=== PATIENT | female | born 1930 | race Caucasian/White ===

== ENCOUNTER 2019-02-23 06:02 | Inpatient (IN) ==
--- NOTE | 2019-02-10 16:37 | PAT Medication Instructions ---
Medication Instructions Date of Service February 10, 2019 Home Medications cyanocobalamin (vitamin B-12) [Vitamin B-12] 1,000 mcg PO QAM hydrochlorothiazide 12.5 mg PO QAM losartan 50 mg PO QAM multivitamin 1 cap PO QAM DO NOT take the morning of surgery cyanocobalamin (vitamin B-12) [Vitamin B-12] 1,000 mcg PO QAM hydrochlorothiazide 12.5 mg PO QAM losartan 50 mg PO QAM multivitamin 1 cap PO QAM Other Notes If you have any questions please call us at [phone] or [phone] or [phone] or [phone]
--- NOTE | 2019-02-11 10:15 | Anesthesiology Consultation ---
Date of Service February 11, 2019 Assessment & Plan (1) Encounter for pre-operative examination: PCP: 02/09/19: "As long as pre-op EKG, labs acceptable, feel she is acceptable risk for procedure." Chart Review Chart Review: Pending: Refer to Additional Notes / Consult section (pending preop testing (labs, EKG, CXR)) and Patient seen in Pre Admission Testing Teaching & Discussion Pre-Anesthesia Teaching/Discussion Notes: Instructed NPO after midnight before surgery,except medications with 15 cc of water. Medication instructions provided according to the PAT guidelines. History Surgery Operation Date: 02/23/19 08:55 Proposed Procedures p Total Knee Arthroplasty - Cullen Power MD Height/Weight Height: 5 ft 7 in Weight: 77.3 kg Allergies Allergy/AdvReac Type Severity Reaction Status Date / Time Penicillins Allergy Unknown Rash Verified 02/04/19 08:00 Sulfa (Sulfonamide Allergy Unknown Rash Verified 02/04/19 08:00 Antibiotics) Medications Home Medications Medication Instructions Recorded Confirmed Last Taken cyanocobalamin (vitamin B-12) 1,000 mcg PO QAM 02/04/19 02/04/19 Unknown [Vitamin B-12] hydrochlorothiazide 12.5 mg PO QAM 02/04/19 02/04/19 Unknown losartan 50 mg PO QAM 02/04/19 02/04/19 Unknown multivitamin 1 cap PO QAM 02/04/19 02/04/19 Unknown Past Medical History Medical History DDD (degenerative disc disease) Hypertension Osteoarthritis Exercise / Class Metabolic Activity III < 4 Walking/Shop/Light housework (no chest pain/sob with swimming/gardening; ambulation activities limited in setting of increasing knee pain) Past Family History Family History Father Family history of bladder cancer Family history of liver cancer Brother Family history of bladder cancer Past Surgical History Surgical History History of appendectomy History of cataract surgery RIGHT/LEFT History of colonoscopy History of eye surgery RIGHT/LEFT EYELIDS "TIGHTENED" History of gynecologic surgery VAGINAL SLING Past Anesthesia History No Hx of Anesthesia Complications and No Family Hx of Anesthesia Complications History of PONV No Hx of PONV and No Hx of Motion Sickness Social History Smoking Status: Never smoker Do You Dip or Chew Tobacco: No Hx Alcohol Use: Yes Alcohol type: wine alcohol intake frequency: 0-2 drinks per day (1 glass wine/dinner + occasional additional drink HS) Hx Substance Use: No substance use type: does not use Review of Systems Patient denies chest pain, shortness of breath, reflux, cough, wheezing, palpitations. Physical Exam Vital Signs VITALS BP 131/78 P 76 TEMP 97.5 SP02 93%RA RESP 18 PHYSICAL Full neck and c-spine range of motion. Full TMJ range of motion. TMD 3 finger breaths Mallampati Score 1 Dentition: intact, upper front/molars crowns Lungs: clear throughout to auscultation Cardiac: regular rate and rhythm, no murmurs noted Spine: normal Carotid arteries: negative bruit Extremities: no edema
--- NOTE | 2019-02-11 11:12 | XRay Report ---
XR chest Pre-admission PA/Lat CLINICAL HISTORY: Preoperative chest COMPARISON STUDY: No previous studies for comparison. FINDINGS: The cardiac and mediastinal contours are normal. There is no evidence of focal pulmonary co nsolidation. There is no evidence of failure. No pleural effusions are visualized.[There is prominenc e the paraspinal soft tissues at the thoracoabdominal junction, likely secondary to a hiatal hernia. Degenerative changes are present within the spine. IMPRESSION: No active disease in the chest. Electronically signed by: Esteban Valerio M.D. 02/11/2019 11:10 AM
[2019-02-11 12:32] LABS: Basophils # (auto) 0.11 K/uL (0-0.2); Basophils % (auto) 1.6 %; Eosinophils # (auto) 0.21 K/uL (0-0.5); Eosinophils % (auto) 3.1 %; Hemoglobin 14.7 g/dL (12.0-16.0); Immature Granulocytes # (auto) 0.02 K/uL (0.00-0.02); Immature Granulocytes % (auto) 0.3 %; Lymphocytes # (auto) 1.95 K/uL (1.2-3.4); Lymphocytes % (auto) 28.6 %; Mean Corpuscular Hemoglobin 31.1 pg (25-34); Mean Corpuscular Hgb Conc 32.7 g/dL (32-36); Mean Corpuscular Volume 95.3 fL (80-100); Mean Platelet Volume 10.3 fL (7.4-10.4); Monocytes # (auto) 1.05 K/uL (0.11-0.59); Monocytes % (auto) 15.4 %; Neutrophils # (auto) 3.48 K/uL (1.4-6.5); Platelet Count 258 K/uL (130-400); RDW Coefficient of Variation 13.6 % (11.5-14.5); RDW Standard Deviation 47.6 fL (36.4-46.3); Red Blood Count 4.72 M/uL (4.2-5.4); White Blood Count 6.82 K/uL (4.8-10.8)
[2019-02-11 12:48] LABS: BUN Creatinine Ratio 30.3 (10-20); Calcium 9.4 mg/dl (8.5-10.1); Creatinine Clr Calc Pharmacy 90.4 ml/min; Est GFR (African American) 102.9; Est GFR (Non-African American) 88.8; Potassium 3.9 mmol/L (3.5-5.1)
[2019-02-11 12:51] LABS: Appearance Urine Clear (Clear); Bacteria Urine Automated Negative (Negative); Bilirubin Urine Negative (Negative); Blood Urine Negative (Negative); Color Urine Yellow; Epithelial Cell Urine Auto >30 /lpf (0-5); Glucose Urine UA Negative (Negative); Ketones Urine Negative (Negative); Leukocyte Esterase Urine Trace (Negative); Nitrite Urine Negative (Negative); Protein Urine Negative (Negative); RBC Urine Automated 0-4 /hpf (0-4); Specific Gravity Urine 1.015 (1.000-1.030); Urobilinogen Urine Negative (Negative)
[2019-02-11 12:52] LABS: Partial Thromboplastin Time 26.5 Seconds (21.0-31.0); Prothrombin Time 10.1 Seconds (9.0-12.0)
--- NOTE | 2019-02-15 15:58 | History and Physical Report ---
DATE OF ADMISSION: 02/23/2019 CHIEF COMPLAINT: Right knee pain. HISTORY OF PRESENT ILLNESS: This 88-year-old white female presents to the office with complaints of right knee pain for the last 2-3 years. It has become worse over the last 6 months. She has tried activity modification as well as OTC medications without improvement. She has also tried injections for both cortisone and viscosupplementation without lasting relief. She elects to proceed with right total knee arthroplasty in hopes of alleviating her pain. Pain is worse with weightbearing. It is affecting her ADLs. She denies any numbness or tingling. No effusions. She does get night pain. X-ray and MRI imaging have previously been obtained. PAST MEDICAL HISTORY: Significant for hypertension, peripheral neuropathy, osteoarthritis, low back pain, and obesity. PREVIOUS SURGERIES: Cataract surgery and eyelid surgery, appendectomy. ALLERGIES: KNOWN ALLERGY TO PENICILLIN THAT CAUSED RASH 40 years ago. ALSO, ALLERGIC TO SULFA DRUGS. SENSITIVE TO SHELLFISH, WHICH CAUSE GI symptoms. CURRENT MEDICATIONS: Multivitamin daily, Tylenol p.r.n., ibuprofen p.r.n., Voltaren gel q.i.d., losartan daily, unknown dose. SOCIAL HISTORY: The patient is . No tobacco use and daily ETOH use. Retired. FAMILY HISTORY: Noncontributory. Parents are . REVIEW OF SYSTEMS: A total of 10 systems are reviewed and are significant only for above stated conditions. PHYSICAL EXAMINATION: GENERAL: Well-developed, well-nourished elderly white female in no acute distress. Sitting in a chair. Alert and oriented. VITAL SIGNS: Weight 77.4 kg, height 166 cm, BP 136/70, pulse 106, temperature 36.8, O2 sat 96% on room air. SKIN: Warm and dry with fair turgor. No rashes or lesions. No ecchymosis or erythema. HEENT: Normocephalic, atraumatic. Eyes PERRLA, EOMI. Nares patent bilaterally without turbinate enlargement. Oropharynx without erythema or exudate. No lesions noted. Uvula midline. Oral mucosa moist. Fair dentition. Multiple fillings and caps are noted. HEART: RRR. No MGR. LUNGS: Clear to auscultation bilaterally. No crackles, rhonchi or wheezing. Good air movement. ABDOMEN: Mildly obese. Bowel sounds present x4, soft, nontender. No organomegaly. No masses. MUSCULOSKELETAL: Right knee evaluation reveals no significant intraarticular effusion. Obvious arthritic changes. Valgus stance. Full terminal extension. Flexion to just greater than 90 degrees. Strength is 5/5 with fair quad tone. Stable collateral ligaments. No laxity. No defect in the patellar tendon or quadriceps tendon. Ambulatory with an antalgic gait. NEUROLOGIC: Cranial nerves II through XII were intact. Gross sensation is intact across the right leg by soft touch. Peripheral pulses are 2+. DATA: Radiographic imaging previously obtained shows end-stage DJD of the right knee. MRI imaging previously obtained also shows end-stage DJD of the right knee. IMPRESSION: Right knee end-stage degenerative joint disease. PLAN: Postoperative prescriptions for Percocet and Coumadin will be provided at discharge from the hospital. Anticipate discharge to home with home health services. She already has access to a cane. Prescription for a rolling walker was provided. Preoperative lab work, EKG, and chest x-ray have been ordered. She has already seen her PCP, Dr. Richter for medical clearance.
[~2019-02-23 06:02] MED LIST: CEFAZOLIN 2000MG 2,000 MG/15 ML SYR IV SCH; LR 500ML BOLUS, THEN 15ML/HR IV SCH; LR 60ML/HR IV SCH; ROPIVACAINE 0.5% HCL/PF 150 MG, BUPIVACAINE 0.5% MPF 30 ML, EPINEPHrine 0.15 MG, Ketoro... INFIL SCH; TRANEXAMIC ACID 1,000 MG **IV Pre-op IV SCH
--- NOTE | 2019-02-23 06:29 | History & Physical Bridge Note ---
Date of Service February 23, 2019 History & Physical Bridge Note I have examined the patient, reviewed the History & Physical and in the interval since the performance of the History & Physical I have noted the following changes of clinical significance: consent obtained.no changes noted
[2019-02-23] MEDS ORDERED: BUPIVACAINE 0.5 % 5 MG/1 ML PF 10ML VIAL ONE (06:31)
[2019-02-23] MEDS ORDERED: ROPIVACAINE 0.5% 5 MG/ML 30 ML VIAL ONE (06:32)
[2019-02-23] MEDS ORDERED: EPINEPHrine INJ 1 MG/ML AMP ONE (06:32)
[2019-02-23] MEDS ORDERED: fentaNYL citrate 100 MCG/2 ML VIAL IV PRN (07:28)
[2019-02-23] MEDS ORDERED: HYDROmorphone INJ 1 MG/ML SYRINGE IV PRN (07:28)
[2019-02-23] MEDS ORDERED: ONDANSETRON INJ 2 MG/ML 2 ML VIAL IV PRN ×2 (07:28→12:06)
[2019-02-23] MEDS ORDERED: ePHEDrine sulfate 50 MG/ML AMP IV PRN (07:28)
[2019-02-23] MEDS ORDERED: ATROPINE SULFATE 0.1 MG/ML 10ML SYR IV PRN (07:28)
[2019-02-23] MEDS ORDERED: MIDAZOLAM HCL 1 MG/ML 2ML VIAL ONE (08:11)
[2019-02-23] MEDS ORDERED: fentaNYL citrate 100 MCG/2 ML VIAL ONE (08:11)
[2019-02-23] MEDS ORDERED: ORTHO JOINT ANESTHETIC ONE (09:14)
[2019-02-23] MEDS ORDERED: LIDOCAINE HCL 2% 2 ML VIAL/AMP(20MG/ML) INFIL ONE (10:27)
[2019-02-23] MEDS ORDERED: PHENYLEPHRINE 100MCG/ML 5ML SYR ONE (10:27)
[2019-02-23] MEDS ORDERED: PROPOFOL IV EMULSION 10 MG/ML 20 ML VIAL IV ONE (10:27)
--- NOTE | 2019-02-23 10:48 | Post Operative Brief Note ---
Immediate Post Op Note v1 Date of Surgery February 23, 2019 Pre & Post Diagnosis Operation Date: 02/23/19 08:50 Pre-Op Diagnosis: Right Knee End-Stage Degenerative Joint Disease Post-Op Diagnosis: Right Knee End-Stage Degenerative Joint Disease Procedure Operation Date: 02/23/19 08:50 Actual Procedures p Right Total Knee Arthroplasty(Right) - Cullen Power MD Surgeon Cullen Power MD Video Specialist gianna/john Estimated Blood Loss 25 Findings Consistent with Post-Op Diagnosis
--- NOTE | 2019-02-23 10:53 | Operative Report ---
Post Operative Report Pre & Post Diagnosis Operation Date: 02/23/19 08:50 Pre-Op Diagnosis: Right Knee End-Stage Degenerative Joint Disease Post-Op Diagnosis: Right Knee End-Stage Degenerative Joint Disease Procedure Operation Date: 02/23/19 08:50 Actual Procedures Right Total Knee Arthroplasty(Right) - Cullen Power MD Surgeon BLUE Power MD Transportation Planner gianna/john Estimated Blood Loss 25 Findings Consistent with Post-Op Diagnosis Specimens see operative report Drains none Complications none Disposition Accompanied Patient To Recovery: Yes Disposition: Recovery Room Indications This 88-year-old white female presented to the office with complaints of intractable right knee pain. She had tried conservative care measures without improvement. She elected to proceed with surgical intervention after being educated about potential risks and outcomes. Preoperative imaging was obtained. Description of Procedure Patient was administered a spinal anesthetic and then taken to the operating room where she was given sedation. She was prepped and draped in the usual sterile fashion. Please see Dr. Power's operative report for specifics of the procedure. I was present for the entire case from initial patient positioning through final wound closure. Assistance was provided in tissue retraction, hemostasis, trial implant placement, final implant placement, and final wound closure. Patient was taken to the recovery room in satisfactory condition. I attest to the content of the Intraoperative Record and any orders documented therein. Any exceptions are noted below.
--- NOTE | 2019-02-23 10:55 | Operative Report ---
Post Operative Report Pre & Post Diagnosis Operation Date: 02/23/19 08:50 Pre-Op Diagnosis: Right Knee End-Stage Degenerative Joint Disease Post-Op Diagnosis: Right Knee End-Stage Degenerative Joint Disease Procedure Operation Date: 02/23/19 08:50 Actual Procedures p Right Total Knee Arthroplasty(Right) - Cullen Power MD Surgeon Cullen Power MD Public Relations Intern gianna/john Estimated Blood Loss 25 Findings Consistent with Post-Op Diagnosis Specimens As per the procedure notes Complications none Disposition Accompanied Patient To Recovery: Yes Disposition: Recovery Room Indications 88 years woman with right knee degenerative arthritis Description of Procedure Supine position, standard prep and drape, tourniquet control, timeout Right knee total knee arthroplasty Please see Dr. Power's procedure notes for specific details I was present throughout the case, assisted for wound closure, and transfer the patient to PACU in stable condition. I attest to the content of the Intraoperative Record and any orders documented therein. Any exceptions are noted below.
--- NOTE | 2019-02-23 11:25 | Operative Report ---
DATE OF OPERATION: 02/23/2019 SURGEON: Cullen Power MD PATROL SUPERVISOR: Dr. Pelaez. SECOND PATROL SUPERVISOR: Dax Bui PA-C PREOPERATIVE DIAGNOSIS: Osteoarthritis, right knee with flexion deformity. POSTOPERATIVE DIAGNOSIS: Osteoarthritis, right knee with flexion deformity. OPERATION PERFORMED: Cemented right total knee replacement. SUMMARY OF IMPLANTS: Size 3 right femur, posterior cruciate substituting, size 3 mobile bearing tray, oval-domed 3-peg patella, size 3 insert, 10 mm thick, posterior cruciate substituting, 2 bags of Palacos G cement. Bone pathology pending on resection. ESTIMATED BLOOD LOSS: 25 mL. CRYSTALLOID: 1600 mL. PERIOPERATIVE SITUATION: Medically cleared female with intractable knee pain, has failed conservative management and is requesting total knee replacement. She understands risks and consequences. DESCRIPTION OF PROCEDURE: The patient was appropriately identified, site verified, consent verified. Antibiotics confirmed as being given. The right lower extremity was prepped and draped in usual routine fashion. Tourniquet inflated to 300 mmHg after exsanguination of limb with a rubber Esmarch bandage for a total of 47 minutes. A midline exposure was utilized. Parapatellar arthrotomy was performed. Synovectomy completed. Patella was everted easily. Distal femur was then entered. Cruciates resected, tibia subluxated, menisci resected. Femur resected, 14 mm; tibia resected, 4 mm, the extension gap was excellent. Femur was sized between a 4 and a 3, was measured 4 cut 3. The flexion gap was excellent. Orthomix was injected posteriorly. A box cut was then made and a size 3 femur fit well. The tibia was then broached and reamed to a size 3 and a 10 mm spacer was very stable in all planes including mid range flexion. The patella tracked well. The patella was sized to a 38 after it was resected leaving 16 mm. Seating holes made and the trial tracked well. Orthomix was injected all around the joint. The trials were then removed. The wound was irrigated with Betadine and Pulsavac and then cemented into position, tibia, femur and patella in that sequence. After 12 minutes, the tourniquet was deflated. Minor bleeding points were controlled with electrocautery. After additional 2 minutes, the knee was flexed, subluxated, the spacer removed. No cement removal required. It was irrigated with Betadine. Permanent liner seated. The knee reduced and closed with #2 Vicryl, 2-0 Vicryl, and stainless steel clips. Appropriate dressing applied. DVT prophylaxis per protocol. I attest to the content of the Intraoperative Record and any orders documented therein. Any exceptions are noted below. MTDD
--- NOTE | 2019-02-23 11:57 | Anesthesiology Progress Note ---
Date of Service February 23, 2019 Anesthesia Post Procedure Vital Signs Vital Signs: Temp Pulse Resp BP Pulse Ox 02/23/19 11:40 36.3 C L 67 16 102/54 L 97 02/23/19 11:30 36.6 C 71 15 104/57 L 99 02/23/19 11:20 36.3 C L 76 17 106/52 L 96 02/23/19 11:10 36.3 C L 76 17 106/52 L 96 02/23/19 11:00 36.3 C L 75 23 93/53 L 94 02/23/19 10:54 36.3 C L 75 18 97/53 L 96 02/23/19 06:57 36.4 C L 75 20 138/75 95 Pain Intensity Right Knee: Pain Intensity: 1 Transfer of Care Handoff Completed per policy Notes Mental Status: alert / awake / arousable and participated in evaluation Patient Amnestic to Procedure: Yes Nausea / Vomiting: adequately controlled Pain: adequately controlled Airway Patency, RR, SpO2: stable & adequate BP & HR: stable & adequate Hydration State: stable & adequate Anesthetic Complications: no major complications apparent and Pt Satisfied with anesthetic care
[2019-02-23] MEDS ORDERED: DiphenhydrAMINE HCL 50 MG/ML VIAL IV PRN (12:06)
[2019-02-23] MEDS ORDERED: METOCLOPRAMIDE HCL INJ 5 MG/ML 2 ML VIAL IV PRN (12:06)
[2019-02-23] MEDS ORDERED: KETOROLAC TROMETHAMINE 15 MG/ML VIAL IV PRN (12:06)
[2019-02-23] MEDS ORDERED: bisacodyL 10 MG SUPP PR PRN (12:06)
[2019-02-23] MEDS ORDERED: SODIUM CHLORIDE 0.9% 1000ML 1,000 ML IV SCH (12:06)
[2019-02-23] MEDS ORDERED: HYDROmorphone INJ 0.5 MG/0.5 ML SYR IV PRN (12:06)
[2019-02-23] MEDS ORDERED: ALUMINUM/MAGNESIUM SUSP 30 ML UDC PO PRN (12:06)
[2019-02-23] MEDS ORDERED: MAGNESIUM HYDROXIDE SUSP 30 ML UDC PO PRN (12:06)
[2019-02-23] MEDS ORDERED: NALOXONE HCL 0.4 MG/1 ML VIAL/CARP IV PRN (12:06)
--- NOTE | 2019-02-23 12:06 | Anesthesiology Progress Note ---
Date of Service February 23, 2019 Anesthesia Post Procedure Vital Signs Vital Signs: Temp Pulse Resp BP Pulse Ox 02/23/19 11:55 68 16 107/53 L 97 02/23/19 11:40 36.3 C L 67 16 102/54 L 97 02/23/19 11:30 36.6 C 71 15 104/57 L 99 02/23/19 11:20 36.3 C L 76 17 106/52 L 96 02/23/19 11:10 36.3 C L 76 17 106/52 L 96 02/23/19 11:00 36.3 C L 75 23 93/53 L 94 02/23/19 10:54 36.3 C L 75 18 97/53 L 96 02/23/19 06:57 36.4 C L 75 20 138/75 95 Pain Intensity Right Knee: Pain Intensity: 1 Transfer of Care Handoff Completed per policy Notes Mental Status: alert / awake / arousable and participated in evaluation Patient Amnestic to Procedure: Yes Nausea / Vomiting: adequately controlled Pain: adequately controlled Airway Patency, RR, SpO2: stable & adequate BP & HR: stable & adequate Hydration State: stable & adequate Neuraxial Anesthesia: was administered and sensory block is resolving Anesthetic Complications: no major complications apparent and Pt Satisfied with anesthetic care
--- NOTE | 2019-02-23 12:16 | XRay Report ---
XR knee RT 2V routine CLINICAL HISTORY: Surgical Post Op COMPARISON: Right knee radiographs February 11, 2019. FINDINGS: Alignment of the total right knee arthroplasty is anatomic. There is no fracture or unexpe cted radiopaque foreign body. There are skin clarita. IMPRESSION: Expected findings following total right knee arthroplasty. Electronically signed by: Sai Acevedo M.D. 02/23/2019 12:15 PM
[2019-02-23] MEDS: ORTHO WARFARIN NOMOGRAM SCH (13:17)
[2019-02-23] MEDS: ACETAMINOPHEN 500 MG TAB PO SCH ×2 (13:23→21:03)
--- NOTE | 2019-02-23 13:33 | Progress Note ---
DATE: 02/23/2019 SUBJECTIVE: Postop check right knee replacement. She is doing well. Neurovascular check is normal. She denies chest pain, shortness of breath, fever, chills, nausea, vomiting or headache. Vital signs are stable. She is afebrile. She is eating lunch. Wound dressing clean, dry and intact. Postop x-rays look excellent. ASSESSMENT: Doing well. Continue care pathway. Potential discharge tomorrow.
--- NOTE | 2019-02-23 13:42 | Discharge Summary ---
DATE OF ADMISSION: 02/23/2019 DATE OF DISCHARGE: 02/24/2019 CHIEF COMPLAINT: Right knee pain. HISTORY OF PRESENT ILLNESS: The patient is a healthy 88-year-old female who underwent elective right total knee replacement. Hospital course has been uneventful. She is eating and drinking. Denies chest pain, shortness of breath, fever, chills, nausea, vomiting, or headache. She has excellent looking postop x-rays. PAST MEDICAL HISTORY: Remarkable for hypertension, peripheral neuropathy, osteoarthritis, low back pain, obesity. PAST SURGICAL HISTORY: Include cataract surgery, eyelid surgery, appendectomy. ALLERGIES: PENICILLIN 40 YEARS AGO CAUSED A RASH, ALLERGIC TO SULFA DRUGS, SENSITIVE TO SHELLFISH, WHICH CAUSES GI SYMPTOMS. PREADMISSION MEDICATIONS: Include multivitamin, Tylenol p.r.n., ibuprofen, Voltaren gel, losartan unknown dose. She will be discharged on pain medication and Coumadin. Keep INR 1.8-2.2. SOCIAL HISTORY: Reveals she is . No tobacco or alcohol use. REVIEW OF SYSTEMS: Noncontributory. FAMILY HISTORY: Noncontributory. ASSESSMENT: Overall doing well status post right total knee replacement. Postop x-rays look excellent. Continue care pathway. Discharge according to regulations. She should be ready for discharge tomorrow.
[2019-02-23] MEDS ORDERED: WARFARIN SOD 5 MG TAB PO ONE (16:00)
[2019-02-23] MEDS: CEFAZOLIN 2000MG 2,000 MG/15 ML SYR IV SCH (16:21)
[2019-02-23] MEDS: FERROUS GLUCONATE 324 MG TAB PO SCH (16:32)
[2019-02-23] MEDS: ASCORBIC ACID 500 MG TAB PO SCH (16:32)
[2019-02-23] MEDS ORDERED: TRANEXAMIC ACID 1,000 MG in 0.9 % SODIUM CHLORIDE 100 ML IV SCH (16:55)
[2019-02-23] MEDS: DOCUSATE SODIUM 100 MG CAP PO SCH (20:20)
[2019-02-23] MEDS ORDERED: SENNA 8.6 MG TAB PO SCH (21:00)
[2019-02-24] MEDS: CEFAZOLIN 2000MG 2,000 MG/15 ML SYR IV SCH
[2019-02-24] MEDS: OXYCODONE HCL IR 5 MG TAB (IMMEDIATE RELEASE) PO PRN ×3 (01:57→13:11)
[2019-02-24] MEDS: ACETAMINOPHEN 500 MG TAB PO SCH ×2 (05:55→13:14)
[2019-02-24 06:27] LABS: Hematocrit (blood only) 35.8 % (37-47); Hemoglobin 11.7 g/dL (12.0-16.0); Mean Corpuscular Hemoglobin 30.7 pg (25-34); Mean Corpuscular Hgb Conc 32.7 g/dL (32-36); Mean Platelet Volume 9.5 fL (7.4-10.4); Platelet Count 217 K/uL (130-400); RDW Coefficient of Variation 13.3 % (11.5-14.5); RDW Standard Deviation 45.9 fL (36.4-46.3); Red Blood Count 3.81 M/uL (4.2-5.4); White Blood Count 12.46 K/uL (4.8-10.8)
[2019-02-24 06:43] LABS: INR 1.1 (0.9-1.1); Prothrombin Time 10.8 Seconds (9.0-12.0)
[2019-02-24 06:57] LABS: Calcium 8.4 mg/dl (8.5-10.1); Creatinine Clr Calc Pharmacy 90.4 ml/min; Est GFR (African American) 102.9; Est GFR (Non-African American) 88.8
--- NOTE | 2019-02-24 07:24 | Progress Note ---
DATE: 02/24/2019 SUBJECTIVE: Check status post right total knee replacement. The patient is without any complaints. She slept poorly based on the fact she was aroused by hospital processing the whole night. Otherwise, she states she was fine. Denies chest pain, shortness of breath, fever, chills, nausea, vomiting or headache. OBJECTIVE: VITAL SIGNS: Stable. She is afebrile. EXTREMITIES: Neurovascular check femoral sciatic nerve is normal. Calves nontender. LABORATORY WORK: Reveals hematocrit is stable at 35.8. INR is pending. ASSESSMENT: Doing well. PLAN: Discharge to home today with services. She will follow up in 2 weeks for staple removal. Coumadin dose per nomogram.
[2019-02-24] MEDS: FERROUS GLUCONATE 324 MG TAB PO SCH (07:51)
[2019-02-24] MEDS: ASCORBIC ACID 500 MG TAB PO SCH (07:51)
[2019-02-24] MEDS: DOCUSATE SODIUM 100 MG CAP PO SCH (07:52)
[2019-02-24] MEDS ORDERED: dexAMETHasone 10 MG in SYRINGE 0 ML IV SCH (08:00)
--- NOTE | 2019-02-24 08:50 | Anesthesiology Progress Note ---
Date of Service February 24, 2019 Anesthesia Post Procedure Vital Signs Vital Signs: Temp Pulse Pulse Resp BP Pulse Ox 02/24/19 07:35 36.7 C 84 16 134/72 94 02/24/19 04:11 36.3 C L 83 16 133/74 94 02/23/19 23:57 36.3 C L 77 16 120/68 94 02/23/19 19:14 36.3 C L 92 H 16 141/73 H 94 02/23/19 15:00 36.4 C L 16 138/77 91 02/23/19 14:11 36.6 C 16 147/80 H 96 02/23/19 13:25 86 16 138/75 97 02/23/19 12:40 36.4 C L 16 125/59 L 97 02/23/19 12:00 36.4 C L 80 16 100/66 95 02/23/19 11:55 68 16 107/53 L 97 02/23/19 11:40 36.3 C L 67 16 102/54 L 97 02/23/19 11:30 36.6 C 71 15 104/57 L 99 02/23/19 11:20 36.3 C L 76 17 106/52 L 96 02/23/19 11:10 36.3 C L 76 17 106/52 L 96 02/23/19 11:00 36.3 C L 75 23 93/53 L 94 02/23/19 10:54 36.3 C L 75 18 97/53 L 96 Pain Intensity Right Knee: Pain Intensity: 7 Notes Mental Status: alert / awake / arousable and participated in evaluation Patient Amnestic to Procedure: Yes Nausea / Vomiting: adequately controlled Pain: adequately controlled Airway Patency, RR, SpO2: stable & adequate BP & HR: stable & adequate Hydration State: stable & adequate Neuraxial Anesthesia: was administered and sensory block resolved Anesthetic Complications: no major complications apparent and Pt Satisfied with anesthetic care
[2019-02-24] MEDS ORDERED: MULTIVITAMIN TAB PO SCH (09:00)
[2019-02-24] MEDS ORDERED: hydroCHLOROthiazide 25 MG TAB PO SCH (09:00)
[2019-02-24] MEDS ORDERED: LOSARTAN POTASSIUM 50 MG TAB PO SCH (09:00)
--- NOTE | 2019-02-24 09:43 | Orthopedic Progress Note ---
Date of Service February 24, 2019 Assessment & Plan (1) Status post right knee replacement: Anticipate discharge to the [facility] this afternoon at 2 PM. Continue PT/OT this morning Coumadin per nomogram. Keep INR between 1.8 and 2.2. Leave dressings in place until Thursday and then change as needed for swelling She will use her knee immobilizer today with her walker. She may discontinue the immobilizer tomorrow at noon. Follow-up in the office in 2 weeks as scheduled Subjective Patient is seen in her room this morning. She is sitting in her chair eating breakfast. She is smiling and conversive. States she has no pain at this point. States she did not sleep well because staff were waking her up multiple times through the night. She states she was actually woken up twice to be given pain medication. She feels ready for discharge. No other complaints. Review of Systems Review of Systems: Unchanged from preop. Physical Exam Physical Exam: General: Well-developed, well-nourished, elderly white female, alert and smiling. Conversive. No acute distress. Musculoskeletal: Right knee has her postop dressing in place. Upon removal, there is scant dried blood on her dressings. No active bleeding at this time. Minimal postop edema. No ecchymosis. [place] are intact. Wound edges are well approximated. Patient has intact motor function to her quad, ankle, and toes. She flexes fairly easily from 0-60. Neurologic: Gross sensation is intact across the right leg by soft touch. Peripheral pulses are 2+. Results & Data Vital Signs (Past 12 Hours) Vital Signs Temp Pulse Pulse Resp BP Pulse Ox 02/24/19 09:21 36.7 C 92 H 84 16 134/72 94 02/24/19 07:35 36.7 C 84 16 134/72 94 02/24/19 04:11 36.3 C L 83 16 133/74 94 02/23/19 23:57 36.3 C L 77 16 120/68 94 Laboratory Results H&H obtained this morning 11.7 and 35.8. INR is 1.1.
[2019-02-24] MEDS: ORTHO WARFARIN NOMOGRAM SCH (12:18)
[2019-02-24] MEDS ORDERED: WARFARIN SOD 5 MG TAB PO SCH (16:00)
== END 2019-02-24 14:03 | DRG 470 ==
LOC: ASU 06:02 → 3E 11:02

== ENCOUNTER 2019-04-08 11:40 | Inpatient (IN) ==
[2019-04-08] MEDS ORDERED: SODIUM CHLORIDE 0.9% 500 ML IV ONE ×2 (12:12→13:03)
--- NOTE | 2019-04-08 12:44 | XRay Report ---
XR chest 1V portable CLINICAL HISTORY: Chest Pain dyspnea COMPARISON STUDY: 03/22/2019 FINDINGS: Interstitial infiltrate left and to a lesser extent right base. Mid and upper lungs are aquiles ar. Chronic hilar fullness bilaterally. There are no consolidative infiltrates. IMPRESSION: Mild bibasilar interstitial infiltrative change. Chronic hilar fullness. The above report was generated using voice recognition software. It may contain grammatical, syntax or spelling errors. Electronically signed by: Jakob Cervantes M.D. 04/08/2019 12:43 PM
[2019-04-08 12:47] LABS: Hemoglobin 13.3 g/dL (12.0-16.0); Mean Corpuscular Hemoglobin 29.8 pg (25-34); Mean Corpuscular Hgb Conc 32.4 g/dL (32-36); Mean Corpuscular Volume 91.9 fL (80-100); Mean Platelet Volume 9.2 fL (7.4-10.4); Platelet Count 370 K/uL (130-400); RDW Coefficient of Variation 14.1 % (11.5-14.5); RDW Standard Deviation 47.7 fL (36.4-46.3); Red Blood Count 4.46 M/uL (4.2-5.4); White Blood Count 21.35 K/uL (4.8-10.8)
[2019-04-08 12:57] LABS: Prothrombin Time 10.4 Seconds (9.0-12.0)
[2019-04-08] MEDS ORDERED: DOXYCYCLINE HYCLATE 100 MG in DEXTROSE 5% 100 ML IV STA (13:00)
[2019-04-08] MEDS ORDERED: VANCOMYCIN CONSULT ACTIVE PRN (13:00)
[2019-04-08] MEDS ORDERED: VANCOMYCIN HCL 1,500 MG in SODIUM CHLORIDE 0.9% 500 ML IV ONE (13:00)
[2019-04-08] MEDS ORDERED: CEFEPIME 2,000 MG/20 ML VIAL IV STA (13:02)
[2019-04-08 13:03] LABS: Alanine Aminotransferase 30 U/L (12-78); Albumin Level 3.7 gm/dl (3.4-5.0); Aspartate Aminotransferase 21 U/L (15-37); BUN Creatinine Ratio 20.3 (10-20); Basophils # (auto) 0.02 K/uL (0-0.2); Basophils % (auto) 0.1 %; Blood Urea Nitrogen 12 mg/dl (7-18); Calcium 9.6 mg/dl (8.5-10.1); Carbon Dioxide 26 mmol/L (21-32); Chloride 102 mmol/L (98-107); Creatinine Clr Calc Pharmacy 63.2 ml/min; Eosinophils # (auto) 0.01 K/uL (0-0.5); Est GFR (African American) 94.5; Est GFR (Non-African American) 81.5; Glucose 159 mg/dl (70-99); Immature Granulocytes # (auto) 0.11 K/uL (0.00-0.02); Immature Granulocytes % (auto) 0.5 %; Lipase 125 U/L (73-393); Lymphocytes # (auto) 0.41 K/uL (1.2-3.4); Lymphocytes % (auto) 1.9 %; Magnesium 1.7 mg/dl (1.8-2.4); Monocytes # (auto) 0.46 K/uL (0.11-0.59); Monocytes % (auto) 2.2 %; Neutrophils # (auto) 20.34 K/uL (1.4-6.5); Neutrophils % (auto) 95.3 %; Potassium 3.5 mmol/L (3.5-5.1); Sodium 137 mmol/L (136-145)
[2019-04-08] MEDS ORDERED: MAGNESIUM SULFATE / D5W 1 GM/100 ML BAG IV ONE (13:11)
[2019-04-08 13:15] LABS: Albumin Globulin Ratio 1.1 (0.9-2); Alkaline Phosphatase 79 U/L (45-117); Bilirubin,Total 0.9 mg/dl (0.2-1); Globulin 3.4 gm/dl (2.5-4.0); Phosphorus 3.2 mg/dl (2.5-4.9); Thyroid Stimulating Hormone 0.033 uIu/ml (0.300-4.500); Total Protein 7.1 gm/dl (6.4-8.2); Troponin I < 0.015 ng/ml (0-0.045)
[2019-04-08 13:30] LABS: T4 Free Thyroxine 1.32 ng/dl (0.8-1.6)
[2019-04-08 14:15] LABS: Lyme Ab IgG w/WB Rflx Negative (Negative)
[2019-04-08 14:19] LABS: Lyme Ab IgM w/WB Rflx Negative (Negative)
[2019-04-08] MEDS ORDERED: SODIUM CHLORIDE 0.9% 1000ML 1,000 ML IV ONE (14:20)
[2019-04-08] MEDS ORDERED: ACETAMINOPHEN 1,000 MG/100 ML VIAL IV STA (14:20)
--- NOTE | 2019-04-08 14:37 | History & Physical Report ---
Date of Service April 08, 2019 Assessment & Plan (1) Sepsis: This is a 88yo F with a PMH of hypertension, vitamin D deficiency, light chain disease, recent right knee replacement and other medical problems listed below who presents with pleuritic chest pain or shortness of breath since yes terday and was found to have sepsis 2/2 PNA and UTI. -Tachycardic at 124, O2 saturation at 96% on 2 L nasal cannula. Does not require home O2. Leukocytosis of 21.35k and lactic acid elevation at 2.4 - Flu PCR, Anaplasma DNA and Lyme antibody pending. BNP and troponin normal. CXR with mild bibasilar interstitial infiltrative change. Chronic hilar fullness -Started on cefepime, vancomycin and doxycycline in ED and is receiving second liter of normal saline -Follow blood and urine culture -Routine ID consult -Repeat lactate pending (2) Pneumonia: CXR with mild bibasilar interstitial infiltrative change. Chronic hilar fullness -Also considered PE in the setting of SOB and tachycardia but CT PE with no evidence of acute pulmonary embolism. Progressive interlobular septal thickening suggesting worsening interstitial pulmonary edema -Treating with vanc and cefepime -Follow blood cultures -Supplemental O2 (3) UTI (urinary tract infection): UTI with positive urine cultures growing enterococcus on 03/15 and 03/31 -Just started on second week-long course of Macrobid -Repeat urine culture pending. Empiric abx coverage (4) Edema of right lower extremity: R>L BLE edema on exam -Concern for DVT in the setting of recent knee surgery. No evidence of PE on CTA chest -RLE venous Doppler pending (5) Hypertension: Mildly elevated in setting of pain -Continue home hctz, losartan (6) Headache: Developed headache while in ED. No nuchal rigidity or photophobia -Given Tylenol. Continue to monitor (7) Thyroid nodule: PCP following. 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 Discharge planning ordered for return to [place] at [facility] Patient seen in collaboration with Dr. Fowler. Please see addendum. History of Present Illness Chief Complaint: malaise, SOB Primary Care Provider: Ez Richter MD This is a 88yo F with a PMH of hypertension, vitamin D deficiency, light chain disease, recent right knee replacement and other medical problems listed below who presents with pleuritic chest pain or shortness of breath since yesterday. Patient has had intermittent malaise and body aches for the past 2 weeks along with dysuria and urinary frequency. Is receiving second course of Macrobid for enterococcus [place] (most recent urine culture from 03/31 grew enterococcus sensitive to Macrobid) is still having urinary symptoms. Yesterday, patient also began to experience chills, pleuritic chest pain, shortness of breath and productive cough with yellow sputum. Since arrival in ED, also complaining of headache but denies photophobia. Denies fever, lightheadedness, visual changes, chest pain, palpitations, wheezing or hemoptysis. Appetite has been poor compared to normal. Also endorsing constipation but had small BM with straining this morning. In ED, patient found to tachycardic at 124 and is saturating at 96% on 2 L nasal cannula. Does not require home O2. Leukocytosis of 21.35k and lactic acid elevation at 2.4. Flu PCR, Anaplasma DNA and Lyme antibody pending. BNP and troponin normal. CXR with mild bibasilar interstitial infiltrative change. Chronic hilar fullness. Started on cefepime, vancomycin and doxycycline in ED and is receiving second liter of normal saline. Of note, patient recently underwent right knee replacement at [facility] in late January and was placed on Cou madin for DVT prophylaxis at that time. Allergies Allergy/AdvReac Type Severity Reaction Status Date / Time Penicillins Allergy Unknown Rash Verified 04/08/19 13:00 Sulfa (Sulfonamide Allergy Unknown Rash Verified 04/08/19 13:00 Antibiotics) shellfish derived AdvReac Intermediate Diarrhea Verified 04/08/19 13:00 Home Medications Home Medications Medication Instructions Recorded Confirmed Type cyanocobalamin (vitamin B-12) 2,000 mcg PO QAM 02/04/19 04/08/19 History [Vitamin B-12] hydrochlorothiazide 12.5 mg PO QAM 02/04/19 04/08/19 History losartan 50 mg PO QAM 02/04/19 04/08/19 History multivitamin 1 cap PO QAM 02/04/19 04/08/19 History acetaminophen [Tylenol Extra 1,000 mg PO BID 02/23/19 04/08/19 History Strength] nitrofurantoin monohyd/m-cryst 100 mg PO BID 04/08/19 04/08/19 History Past Med/Surg History Medical History Vitamin D deficiency (Chronic) Light chain disease (Chronic) Hypertension (Chronic) DDD (degenerative disc disease) (Chronic) Osteoarthritis (Chronic) Surgical History History of appendectomy (Chronic) History of cataract surgery (Chronic) RIGHT/LEFT History of colonoscopy (Chronic) History of eye surgery (Chronic) RIGHT/LEFT EYELIDS "TIGHTENED" History of gynecologic surgery (Chronic) VAGINAL SLING Family History Father Family history of bladder cancer Family history of liver cancer Brother Family history of bladder cancer Social History Preferred Language: [place] Irish Communication Ability: Effective Test Lead Required: No Beliefs That Will Affect Care: None marital status: Current Living Situation: Spouse Current Living Situation Comment: [place] at [facility] Feels Safe at Home: Yes Smoking Status: Never smoker Hx Alcohol Use: Yes Alcohol type: wine Hx Substance Use: No Review of Systems Review of Systems: At least ten systems reviewed and negative except as noted in the HPI. Physical Exam Physical Exam: General Appearance: WD/WN, vitals as above, NAD, sitting up in bed, pleasant, conversing easily Head: normocephalic, atraumatic Eyes: normal inspection, PERRL, conjunctivae normal, anicteric sclerae ENT: external ear and nose normal, oropharynx normal Neck: trachea midline, no thyromegaly normal visual inspection Respiratory: normal respiratory effort, bibasilar crackles, no wheeze or rhonchi. Normal insp/exp effort, no accessory muscle use Cardiovascular: tachycardic, regular rhythm, no murmur, normal peripheral pulses, BLE edema R>L . Vessels: no JVD or carotid bruit Chest: normal inspection of chest Abdomen/GI: normal bowel sounds, soft, nontender, no hepatosplenomegaly Extremities/Musculoskelatal: no cyanosis or clubbing, extremities motor strength 5/5 Neurologic: PERRL, EOMI, accommodation nl, no face palsy, no dysarthria CN's II-XI intact bilaterally and moves all extremities Psychiatric: A+Ox3, euthymic affect Skin: no rashes, normal color, warm/dry Results & Data Vital Signs (Past 12 Hours) Vital Signs Temp Pulse Resp BP Pulse Ox 04/08/19 13:30 124 H 23 141/64 H 96 04/08/19 13:00 120 H 37 H 133/54 L 96 04/08/19 12:39 126 H 23 94/62 L 95 04/08/19 12:36 122 H 20 95 04/08/19 12:30 126 H 35 H 94 04/08/19 11:43 36.4 C L 135 H 20 134/65 94 Laboratory Results Short CBC 04/08/19 Range/Units 12:38 WBC 21.35 H (4.8-10.8) K/uL Hgb 13.3 (12.0-16.0) g/dL Hct 41.0 (37-47) % Plt Count 370 (130-400) K/uL BMP 04/08/19 12:38 Sodium 137 Potassium 3.5 Chloride 102 Carbon Dioxide 26 BUN 12 Creatinine 0.61 Glucose 159 H Calcium 9.6 Cardiac Enzymes 04/08/19 Range/Units 12:38 Troponin I < 0.015 (0-0.045) ng/ml Liver Function 04/08/19 Range/Units 12:38 Total Bilirubin 0.9 (0.2-1) mg/dl AST 21 (15-37) U/L ALT 30 (12-78) U/L Alkaline Phosphatase 79 (45-117) U/L Albumin 3.7 (3.4-5.0) gm/dl Diagnostic Findings CXR: IMPRESSION: Mild bibasilar interstitial infiltrative change. Chronic hilar fullness. Chest CTA: IMPRESSION: 1. No evidence of acute pulmonary embolism, given the technical limitations of the study which is compromised due to respiratory motion artifact 2. Progressive interlobular septal thickening suggesting worsening interstitial pulmonary edema 3. Small bilateral pleural effusions 4. Dependent atelectasis 5. Stable 26 mm left lobe thyroid nodule ECG Rhythm: sinus tachycardia Code Status & VTE Plan VTE Prophylaxis Plan VTE Prophylaxis will be ordered: Yes Supervising Physician Co-Signing Physician Notes Attending Addendum: care coordinated with LAUREL Hahn please refer to her notes for full details, I agree with her notes patient seen and examined, records reviewed by myself as well on exam, patient seen resting in bed, not in distress has occasional cough, no active dyspnea, chest pain mild lower abdominal discomfort and dysuria no other symptoms VS noted and reviewed oriented x 3, not in distress, speaks in sentences with no effort nor accessory muscle use normal rate, regular rhythm, no murmurs clear breath sounds bilaterally non distended, soft, nontender mild edema of the right knee but no tenderness, erythema; (+) good range of motion mild edema of the right lower leg no neuro deficits WBC 21 Hg 13.3 Crea 0.61 ASSESSMENT AND PLAN SEPSIS, ENTEROCOCCUS UTI, ACUTE BRONCHITIS, R/O LYME/ANAPLASMOSIS Urine culture done as outpatient (+) Enterococcus - sens to penicillin, vanco (patient develops hives with Penicillin) ff up repeat urine culture, blood culture, sputum culture, Lyme, Anaplasmosis studies lactic acid normalized after 2 L IV NSS, CT chest reveals interstitial pulmonary edema, hold off on IV fluids cover with Vanco, Cefepime, Doxycyline ID consulted HTN resume Losartan, HCTZ other diagnoses and plan of care as per LAUREL Hahn's notes Wallace Fowler MD
[2019-04-08 15:16] LABS: Influenza A virus by PCR Neg for Influ A (Neg); Influenza B virus by PCR Neg for Influ B (Neg)
[2019-04-08] MEDS ORDERED: OPTIRAY 320 125ml IV PRN (15:16)
--- NOTE | 2019-04-08 15:36 | CT Scan Report ---
CT ANGIOGRAM OF THE CHEST CLINICAL HISTORY: Atypical chest pain possible pulmonary embolism SHORTNESS OF BREATH COMPARISON STUDY: 03/22/2019 TECHNIQUE: Following the IV administration of 116 mL of [id number]-[id number], CT angiogram of the thorax was p erformed from the thoracic inlet to the lung bases utilizing the pulmonary embolus protocol. Images a re reviewed in the axial, sagittal, and coronal planes. IV contrast was administered without complica tion. MIP imaging was performed. A dose lowering technique was utilized adhering to the principles o f ALARA. CT DOSE: 363.38 mGy.cm FINDINGS: There is stable 26 mm left lobe thyroid nodule. There are borderline enlarged mediastinal and hilar lymph nodes, similar to the preceding study. There was no evidence of thoracic aortic dilatation. Evaluation for pulmonary emboli is limited due to significant respiratory motion artifact. There are no pulmonary artery filling defects to indicate acute pulmonary emboli. There are small bilateral pleural effusions There are dependent atelectatic changes. There is interlobular septal thickening indicative of inters titial pulmonary edema. IMPRESSION: 1. No evidence of acute pulmonary embolism, given the technical limitations of the study which is com promised due to respiratory motion artifact 2. Progressive interlobular septal thickening suggesting worsening interstitial pulmonary edema 3. Small bilateral pleural effusions 4. Dependent atelectasis 5. Stable 26 mm left lobe thyroid nodule Electronically signed by: Esteban Valerio M.D. 04/08/2019 3:34 PM
[2019-04-08] MEDS ORDERED: POLYETHYLENE (MIRALAX) 17 GM PACK PO PRN (15:43)
--- NOTE | 2019-04-08 16:14 | Emergency Department Note ---
Entered by Westley Carrera acting as a scribe for History of Present Illness General Chief complaint: Chest Pain Stated complaint: CHEST PAIN, SOB, MUSCLE ACHES, TIGHT NECK Time Seen by Provider: 04/08/19 12:10 Source: patient Mode of arrival: ambulatory Limitations: no limitations History of Present Illness Onset (ago): day(s) (last night) 1 Location: chest Pain Consistency: + intermittent Maximum Pain Intensity: 6 Quality: + other (episode) Associated symptoms: + denies other symptoms, + shortness of breath and + other (dry throat ) Treatments prior to arrival: other (Macrobid, coumadin) The patient is a 88 year old female who presents to the Emergency Room with complaints of an episode of intermittent chest pain that started last night. The patient notes that this is similar to an episode that she was seen for 10 days ago in the ED. The patient reports that she was not admitted. She states that she was feeing SOB with a dry throat. She reports that the upper part of her chest was hurting earlier but does not feel it now. She notes that she was not put on oxygen the last time she was in the ED. The patient reports that she recently had knee surgery and that there was a concern for blood clots. The patient notes that she was seen by her PCP in that last two weeks for an UTI, and was given Macrobid. She notes that she was taking Coumadin prophylactically but has since stopped after ending the series. Home Medications Home Medications Medication Instructions Recorded Confirmed Type cyanocobalamin (vitamin B-12) 2,000 mcg PO QAM 02/04/19 04/08/19 History [Vitamin B-12] hydrochlorothiazide 12.5 mg PO QAM 02/04/19 04/08/19 History losartan 50 mg PO QAM 02/04/19 04/08/19 History multivitamin 1 cap PO QAM 02/04/19 04/08/19 History acetaminophen [Tylenol Extra 1,000 mg PO BID 02/23/19 04/08/19 History Strength] nitrofurantoin monohyd/m-cryst 100 mg PO BID 04/08/19 04/08/19 History Allergies Allergy/AdvReac Type Severity Reaction Status Date / Time Penicillins Allergy Unknown Rash Verified 04/08/19 13:00 Sulfa (Sulfonamide Allergy Unknown Rash Verified 04/08/19 13:00 Antibiotics) shellfish derived AdvReac Intermediate Diarrhea Verified 04/08/19 13:00 Past Med/Surg History Medical History Vitamin D deficiency (Chronic) Light chain disease (Chronic) Hypertension (Chronic) DDD (degenerative disc disease) (Chronic) Osteoarthritis (Chronic) Surgical History History of appendectomy (Chronic) History of cataract surgery (Chronic) RIGHT/LEFT History of colonoscopy (Chronic) History of eye surgery (Chronic) RIGHT/LEFT EYELIDS "TIGHTENED" History of gynecologic surgery (Chronic) VAGINAL SLING Family History Father Family history of bladder cancer Family history of liver cancer Brother Family history of bladder cancer Social History Preferred Language: Amharic Communication Ability: Effective Top Loader Required: No Beliefs That Will Affect Care: None marital status: Current Living Situation: Spouse Current Living Situation Comment: [facility] [address] Feels Safe at Home: Yes Smoking Status: Never smoker Hx Alcohol Use: Yes Alcohol type: wine Hx Substance Use: No Review of Systems See HPI for pertinent positives & negatives. and A total of 10 systems reviewed and were otherwise negative Physical Exam Vital Signs Vital Signs - 24 hr 04/08/19 11:43 04/08/19 12:30 04/08/19 12:36 Temperature 36.4 C L Temperature Source Oral Sepsis Recent Fever Within 48 Hours No Sepsis Action Taken by Nursing No Action Required Pulse Rate 135 H 126 H 122 H Pulse Rate from SpO2 Sensor 125 H Respiratory Rate 20 35 H 20 Respiratory Effort / Characteristics Non-Labored Spontaneous Respiratory Depth Normal Respiratory Pattern Regular Blood Pressure 134/65 Blood Pressure Mean 88 Pulse Oximetry 94 94 95 Oxygen Delivery Method Room Air Nasal Cannula Nasal Cannula Oxygen Flow Rate 2 2 04/08/19 12:39 04/08/19 13:00 04/08/19 13:30 Temperature Temperature Source Sepsis Recent Fever Within 48 Hours Sepsis Action Taken by Nursing Pulse Rate 126 H 120 H 124 H Pulse Rate from SpO2 Sensor 125 H 120 H 133 H Respiratory Rate 23 37 H 23 Respiratory Effort / Characteristics Respiratory Depth Respiratory Pattern Blood Pressure 94/62 L 133/54 L 141/64 H Blood Pressure Mean 72 80 89 Pulse Oximetry 95 96 96 Oxygen Delivery Method Nasal Cannula Nasal Cannula Oxygen Flow Rate 2 2 04/08/19 14:00 04/08/19 14:30 Temperature Temperature Source Sepsis Recent Fever Within 48 Hours Sepsis Action Taken by Nursing Pulse Rate 120 H 118 H Pulse Rate from SpO2 Sensor 118 H 120 H Respiratory Rate 33 H 35 H Respiratory Effort / Characteristics Respiratory Depth Respiratory Pattern Blood Pressure 105/67 142/73 H Blood Pressure Mean 79 96 Pulse Oximetry 95 95 Oxygen Delivery Method Oxygen Flow Rate 2 2 GENERAL: Awake, alert, fatigued appearing, mildly dyspneic in no distress HENT: Normocephalic, atraumatic. Oropharynx with dry mucous membranes and otherwise unremarkable. EYES: Normal conjunctiva. Sclera non-icteric. NECK: Supple. No nuchal rigidity. FROM. No JVD. RESPIRATORY: Mildly dyspneic, diminished breath sounds at bases with scant intermittent wheeze. CARDIAC: Tachycardic rate, normal rhythm. Extremities warm and well perfused. Pulses equal. ABDOMEN: Soft, non-distended. No tenderness to palpation. No rebound or guarding. No masses. RECTAL: Deferred. MUSCULOSKELETAL: Chest examination reveals no tenderness. The back is symmetrical on inspection without obvious abnormality. There is no CVA tenderness to palpation. No joint edema. LOWER EXTREMITIES: Calves are equal size bilaterally and non-tender. No edema. No discoloration. NEURO: Normal sensorium. No sensory or motor deficits noted. SKIN: No rash or jaundice noted. Course 1214: The patient was evaluated in room A02. A complete history and physical exam was performed. 1313: I checked on the patient and she is resting comforatbly. 1500: I spoke Delonte Leyva. Dr. Fowler will admit the patient. The patient will be evaluated for further management. Administered Medications Acetaminophen (Tylenol) 650 mg PO Q4H PRN PRN Reason: Pain or Fever Stop: 05/08/19 15:42 Last Admin: 04/08/19 19:49 Dose: 650 mg Documented by: [id number] Doxycycline Hyclate (Vibramycin) 100 mg PO BID DARRYL Stop: 04/15/19 21:59 Last Admin: 04/08/19 22:31 Dose: 100 mg Documented by: [id number] Heparin Sodium (Porcine) (Heparin Sodium (Porcine)) 5,000 units SQ Q12 DARRYL Stop: 05/08/19 20:59 Last Admin: 04/08/19 19:53 Dose: 5,000 units Documented by: [id number] Cosigned by: [id number] Cefepime HCl 2,000 mg/ Syringe 20 mls @ 5 mls/min IV Q8H DARRYL; Protocol Stop: 04/15/19 21:59 Last Admin: 04/08/19 22:31 Dose: 5 mls/min Documented by: [id number] Ioversol (Optiray 320 125ml) 116 ml IV ONCE PRN PRN Reason: Interaction Checking Stop: 04/12/19 15:15 Last Admin: 04/08/19 15:17 Dose: 116 ml Documented by: [id number] Lactobacillus Acidophilus (Floranex) 4 tab PO QIDM DARRYL Stop: 05/08/19 16:59 Last Admin: 04/08/19 19:49 Dose: 4 tab Documented by: [id number] Admin: 04/08/19 16:44 Dose: 4 tab Documented by: [id number] Discontinued Medications Sodium Chloride (Nss) 500 mls @ 999 mls/hr IV .Q31M ONE Stop: 04/08/19 12:42 Last Infusion: 04/08/19 13:06 Dose: 0 mls/hr Documented by: [id number] Admin: 04/08/19 12:35 Dose: 999 mls/hr Documented by: [id number] Doxycycline Hyclate 100 mg/ (Dextrose) 110 mls @ 50 mls/hr IV NOW STA Stop: 04/08/19 15:11 Last Infusion: 04/08/19 16:03 Dose: 0 mls/hr Documented by: [id number] Admin: 04/08/19 13:51 Dose: 50 mls/hr Documented by: [id number] Vancomycin HCl 1,500 mg/ (Sodium Chloride) 530 mls @ 200 mls/hr IV NOW ONE Stop: 04/08/19 15:38 Last Infusion: 04/08/19 18:00 Dose: 0 mls/hr Documented by: [id number] Admin: 04/08/19 14:45 Dose: 200 mls/hr Documented by: [id number] Cefepime HCl (Maxipime) 2,000 mg in 20 mls @ 5 mls/min IV NOW STA; Protocol Stop: 04/08/19 13:05 Last Admin: 04/08/19 13:46 Dose: 5 mls/min Documented by: [id number] Sodium Chloride (Nss) 500 mls @ 999 mls/hr IV .Q31M ONE Stop: 04/08/19 13:33 Last Infusion: 04/08/19 14:18 Dose: 0 mls/hr Documented by: [id number] Admin: 04/08/19 13:44 Dose: 999 mls/hr Documented by: [id number] Magnesium Sulfate/Dextrose (Magnesium Sulfate / D5w) 1 gm in 100 mls @ 100 mls/hr IV ONE ONE Stop: 04/08/19 14:10 Last Infusion: 04/08/19 14:44 Dose: 0 mls/hr Documented by: [id number] Admin: 04/08/19 13:50 Dose: 100 mls/hr Documented by: [id number] Acetaminophen (Ofirmev) 1,000 mg in 100 mls @ 400 mls/hr IV NOW STA Stop: 04/08/19 14:34 Last Infusion: 04/08/19 14:44 Dose: 0 mls/hr Documented by: [id number] Admin: 04/08/19 14:31 Dose: 400 mls/hr Documented by: [id number] Sodium Chloride (Nss 1000ml) 1,000 mls @ 999 mls/hr IV .Q1H1M ONE Stop: 04/08/19 15:20 Last Infusion: 04/08/19 16:25 Dose: 0 mls/hr Documented by: [id number] Admin: 04/08/19 14:31 Dose: 999 mls/hr Documented by: [id number] Medical Decision Making Differential Diagnosis Differential diagnosis: Etiologies such as infections, reactive airway disease, COPD, pneumonia, pleural effusion, pulmonary edema, ARDS, pneumothorax, CHF, cardiac ischemia, cardiac tamponade, dysrhythmia, anemia, pulmonary embolism, musculoskeletal, gastrointestinal process, as well as others were entertained. Medical Records Attestation: I reviewed the patient's medical records. Home Medications Current Medication List: was personally reviewed by me Laboratory Data Attestation: I reviewed the patient's lab results. Result diagrams: 04/08/19 12:38 04/08/19 12:38 Lab Results 04/08/19 04/08/19 04/08/19 Range/Units 12:13 12:13 12:13 WBC (4.8-10.8) K/uL RBC (4.2-5.4) M/uL Hgb (12.0-16.0) g/dL Hct (37-47) % MCV (80-100) fL MCH (25-34) pg MCHC (32-36) g/dL RDW Std Deviation (36.4-46.3) fL RDW Coeff of Markie (11.5-14.5) % Plt Count (130-400) K/uL MPV (7.4-10.4) fL Immature Gran % (Auto) % Neut % (Auto) % Lymph % (Auto) % [place] % (Auto) % Eos % (Auto) % Baso % (Auto) % Immature Gran # (Auto) (0.00-0.02) K/uL Neut # (Auto) (1.4-6.5) K/uL Lymph # (Auto) (1.2-3.4) K/uL [place] # (Auto) (0.11-0.59) K/uL Eos # (Auto) (0-0.5) K/uL Baso # (Auto) (0-0.2) K/uL PT (9.0-12.0) Seconds INR (0.9-1.1) Sodium (136-145) mmol/L Potassium (3.5-5.1) mmol/L Chloride (98-107) mmol/L Carbon Dioxide (21-32) mmol/L Anion Gap (3-11) BUN (7-18) mg/dl Creatinine (0.6-1.2) mg/dl Est Cr Clr Drug Dosing ml/min Est GFR ( Amer) Est GFR (Non-Af Amer) BUN/Creatinine Ratio (10-20) Glucose (70-99) mg/dl Lactate (0.4-2.0) mmol/L Calcium (8.5-10.1) mg/dl Phosphorus (2.5-4.9) mg/dl Magnesium (1.8-2.4) mg/dl Total Bilirubin (0.2-1) mg/dl AST (15-37) U/L ALT (12-78) U/L Alkaline Phosphatase (45-117) U/L Troponin I (0-0.045) ng/ml NT-Pro-B Natriuret Pep (0-1800) pg/ml Total Protein (6.4-8.2) gm/dl Albumin (3.4-5.0) gm/dl Globulin (2.5-4.0) gm/dl Albumin/Globulin Ratio (0.9-2) Lipase (73-393) U/L Procalcitonin 1.11 H (0-0.5) ng/ml TSH (0.300-4.500) uIu/ml Free T4 (0.8-1.6) ng/dl Anaplasma Smear Cancelled Lyme Disease IgG Ab Negative (Negative) Lyme Disease IgM Ab Negative (Negative) Influenza Type A (PCR) (Neg) Influenza Type B (PCR) (Neg) 04/08/19 04/08/19 04/08/19 Range/Units 12:38 12:38 12:38 WBC 21.35 H (4.8-10.8) K/uL RBC 4.46 (4.2-5.4) M/uL Hgb 13.3 (12.0-16.0) g/dL Hct 41.0 (37-47) % MCV 91.9 (80-100) fL MCH 29.8 (25-34) pg MCHC 32.4 (32-36) g/dL RDW Std Deviation 47.7 H (36.4-46.3) fL RDW Coeff of Markie 14.1 (11.5-14.5) % Plt Count 370 (130-400) K/uL MPV 9.2 (7.4-10.4) fL Immature Gran % (Auto) 0.5 % Neut % (Auto) 95.3 % Lymph % (Auto) 1.9 % [place] % (Auto) 2.2 % Eos % (Auto) 0.0 % Baso % (Auto) 0.1 % Immature Gran # (Auto) 0.11 H (0.00-0.02) K/uL Neut # (Auto) 20.34 H (1.4-6.5) K/uL Lymph # (Auto) 0.41 L (1.2-3.4) K/uL [place] # (Auto) 0.46 (0.11-0.59) K/uL Eos # (Auto) 0.01 (0-0.5) K/uL Baso # (Auto) 0.02 (0-0.2) K/uL PT 10.4 (9.0-12.0) Seconds INR 1.0 (0.9-1.1) Sodium 137 (136-145) mmol/L Potassium 3.5 (3.5-5.1) mmol/L Chloride 102 (98-107) mmol/L Carbon Dioxide 26 (21-32) mmol/L Anion Gap 9.0 (3-11) BUN 12 (7-18) mg/dl Creatinine 0.61 (0.6-1.2) mg/dl Est Cr Clr Drug Dosing 63.2 ml/min Est GFR ( Amer) 94.5 Est GFR (Non-Af Amer) 81.5 BUN/Creatinine Ratio 20.3 H (10-20) Glucose 159 H (70-99) mg/dl Lactate (0.4-2.0) mmol/L Calcium 9.6 (8.5-10.1) mg/dl Phosphorus 3.2 (2.5-4.9) mg/dl Magnesium 1.7 L (1.8-2.4) mg/dl Total Bilirubin 0.9 (0.2-1) mg/dl AST 21 (15-37) U/L ALT 30 (12-78) U/L Alkaline Phosphatase 79 (45-117) U/L Troponin I < 0.015 (0-0.045) ng/ml NT-Pro-B Natriuret Pep (0-1800) pg/ml Total Protein 7.1 (6.4-8.2) gm/dl Albumin 3.7 (3.4-5.0) gm/dl Globulin 3.4 (2.5-4.0) gm/dl Albumin/Globulin Ratio 1.1 (0.9-2) Lipase 125 (73-393) U/L Procalcitonin (0-0.5) ng/ml TSH 0.033 L (0.300-4.500) uIu/ml Free T4 1.32 (0.8-1.6) ng/dl Anaplasma Smear See Comment Lyme Disease IgG Ab (Negative) Lyme Disease IgM Ab (Negative) Influenza Type A (PCR) (Neg) Influenza Type B (PCR) (Neg) 04/08/19 04/08/19 04/08/19 Range/Units 12:38 13:36 14:33 WBC (4.8-10.8) K/uL RBC (4.2-5.4) M/uL Hgb (12.0-16.0) g/dL Hct (37-47) % MCV (80-100) fL MCH (25-34) pg MCHC (32-36) g/dL RDW Std Deviation (36.4-46.3) fL RDW Coeff of Markie (11.5-14.5) % Plt Count (130-400) K/uL MPV (7.4-10.4) fL Immature Gran % (Auto) % Neut % (Auto) % Lymph % (Auto) % [place] % (Auto) % Eos % (Auto) % Baso % (Auto) % Immature Gran # (Auto) (0.00-0.02) K/uL Neut # (Auto) (1.4-6.5) K/uL Lymph # (Auto) (1.2-3.4) K/uL [place] # (Auto) (0.11-0.59) K/uL Eos # (Auto) (0-0.5) K/uL Baso # (Auto) (0-0.2) K/uL PT (9.0-12.0) Seconds INR (0.9-1.1) Sodium (136-145) mmol/L Potassium (3.5-5.1) mmol/L Chloride (98-107) mmol/L Carbon Dioxide (21-32) mmol/L Anion Gap (3-11) BUN (7-18) mg/dl Creatinine (0.6-1.2) mg/dl Est Cr Clr Drug Dosing ml/min Est GFR ( Amer) Est GFR (Non-Af Amer) BUN/Creatinine Ratio (10-20) Glucose (70-99) mg/dl Lactate 2.4 H* (0.4-2.0) mmol/L Calcium (8.5-10.1) mg/dl Phosphorus (2.5-4.9) mg/dl Magnesium (1.8-2.4) mg/dl Total Bilirubin (0.2-1) mg/dl AST (15-37) U/L ALT (12-78) U/L Alkaline Phosphatase (45-117) U/L Troponin I (0-0.045) ng/ml NT-Pro-B Natriuret Pep 248 (0-1800) pg/ml Total Protein (6.4-8.2) gm/dl Albumin (3.4-5.0) gm/dl Globulin (2.5-4.0) gm/dl Albumin/Globulin Ratio (0.9-2) Lipase (73-393) U/L Procalcitonin (0-0.5) ng/ml TSH (0.300-4.500) uIu/ml Free T4 (0.8-1.6) ng/dl Anaplasma Smear Lyme Disease IgG Ab (Negative) Lyme Disease IgM Ab (Negative) Influenza Type A (PCR) Neg for Influ A (Neg) Influenza Type B (PCR) Neg for Influ B (Neg) Imaging Data Radiologist's Impression: Radiology results as stated below per my review and the radiologist's interpretation: XR chest 1V portable CLINICAL HISTORY: Chest Pain dyspnea COMPARISON STUDY: 03/22/2019 FINDINGS: Interstitial infiltrate left and to a lesser extent right base. Mid and upper lungs are clear. Chronic hilar fullness bilaterally. There are no consolidative infiltrates. IMPRESSION: Mild bibasilar interstitial infiltrative change. Chronic hilar fullness. The above report was generated using voice recognition software. It may contain grammatical, syntax or spelling errors. Electronically signed by: Jakob Cervantes M.D. 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 On arrival patient is fatigued and mildly dyspneic but no acute distress, afebrile with heart rate in 120s but vital signs otherwise stable. On exam patient has diminished breath since at the bases with scant intermittent wheeze. She is neurologically intact. EKG demonstrates sinus tachycardia without overt acute ischemia. Chest x-ray with bibasilar opacities that are suspicious for pneumonia. WBC elevated at 21K increased from prior visit. Chemistry without acidosis. Magnesium 1.7 with repletion provided. Troponin negative. BNP within normal limits. Given the patient's leukocytosis in the setting of her dyspnea reasonable to admit the patient for further management of likely pneumonia. Patient was agreeable with this. Patient's lactate was subsequently mildly elevated at 2.4 and therefore IV fluids were administered more aggressively after being more cautious given prior CT with question of developing pulmonary edema. Case was discussed with Phan Leyva PA-C, who evaluate the patient for admission. Upon reevaluation of the patient in further discussion with admitting team we agreed to proceed with a CT scan of the chest. Limited bedside echo did demonstrate some RV enlargement which is of unclear chronicity and while could be related to underlying lung disease or unknown pulmonary hypertension could also suggest pulmonary embolism. Patient's EF was without any gross reduction per limited views. CT of the chest was subsequently performed and negative for PE however did show increasing septal thickening that again could suggest pulmonary edema. Blood cultures drawn and patient was treated empirically with Cefepime, Vancomycin, and Doxycycline. Impression & Plan Sepsis, Pneumonia, Leukocytosis, Elevated lactic acid level, Shortness of breath Critical Care Time Critical Care Time: Yes Total Critical Care Time: 45 I have personally spent greater than 45 minutes of critical care time in the direct management of this patient. This includes bedside care, interpretation of diagnostic studies, and testing, discussion with consultants, patient, and family members, and other required patient management activities. This 45 minutes is in excess of all separately billable procedures. Discharge Plan Visit Data *Final* Discharge Date/Time: 04/08/19 15:03 Chief Complaint: Chest Pain Stated Complaint: CHEST PAIN, SOB, MUSCLE ACHES, TIGHT NECK ED Provider: Nick Cintron Discharge Problem: Sepsis, Pneumonia, Leukocytosis, Elevated lactic acid level, Shortness of breath Patient Disposition: Admitted As Inpatient Discharge Instructions Interventions: ED Discharge Assessment Last Done: 04/08/19 15:03 Discharge Problem: Sepsis Qualifiers: Sepsis type: sepsis due to unspecified organism Sepsis acute organ dysfunction status: unspecified Qualified Code(s): A41.9 - Sepsis, unspecified organism Pneumonia Qualifiers: Pneumonia type: due to unspecified organism Laterality: bilateral Lung location: lower lobe of lung Qualified Code(s): J18.1 - Lobar pneumonia, unspecified organism The scribe's documentation has been prepared under my direction and personally reviewed by me in its entirety. I confirm that the note above accurately ref lects all work, treatment, procedures, and medical decision making performed by me.
[2019-04-08] MEDS: LACTOBACILLUS ACIDOPHILUS (FLORANEX) TAB PO SCH ×2 (16:44→19:49)
--- NOTE | 2019-04-08 17:10 | Pharmacy Report ---
Pharmacy Abx Dose Short Note - Date of Service April 08, 2019 - Assessment & Plan A/P Pt is being started on vancomycin for R/O sepsis. Possible sources: urine vs lung. She was started on Macrobid as an outpt for an enterococcus in the UA. We will utilize AUC:DANK- based vancomycin dosing, Bayesian method. Renal fxn looks to be close to her baseline. MRSA nares, BCx2, UA all ordered and pending. Vanco 1500mg (20mg/kg) x1 in ED then Vancomycin 1000mg (13mg/kg) q12 per Bayesian approach/nomogram targeting goal AUC 400-600mg h /L will still order a trough: scheduled for 04/10 @1330, indicative of [facility] will continue to follow and will adjust dose/frequency as necessary. Thank you.
--- NOTE | 2019-04-08 17:55 | Ultrasound Report ---
US venous doppler LE RT CLINICAL HISTORY: 88 years-old Female presenting with R>L edema status post right knee replacement. TECHNIQUE: Real-time grayscale and color and spectral Doppler ultrasound imaging of the veins of the right lower extremity was performed. Compression and augmentation were also utilized. COMPARISON: 03/22/2019. FINDINGS: RIGHT: Common femoral vein: Patent. Greater saphenous vein (superficial): Patent. Deep femoral vein: Patent. Femoral vein: Patent. Popliteal vein: Patent. Calf veins: Patent. Other: None. IMPRESSION: No evidence of deep venous thrombosis. Electronically signed by: Matthew Saez M.D. 04/08/2019 5:54 PM
[2019-04-08] MEDS: ACETAMINOPHEN 325 MG TAB PO PRN (19:49)
[2019-04-08] MEDS: HEPARIN SOD 5,000 UNIT/0.5 ML VIAL SQ SCH (19:53)
[2019-04-08] MEDS ORDERED: NSS + 20MEQ KCL 20 MEQ/1,000 ML BAG IV SCH (21:45)
[2019-04-08] MEDS ORDERED: CONSULT PHARMACY PRN (21:58)
[2019-04-08] MEDS ORDERED: CEFEPIME CONSULT ACTIVE PRN (21:59)
[2019-04-08] MEDS ORDERED: HEPARIN SOD 5,000 UNIT/0.5 ML VIAL SQ SCH (22:00)
[2019-04-08] MEDS: CEFEPIME 2,000 MG in SYRINGE 7.5 ML IV SCH (22:31)
[2019-04-08] MEDS: DOXYCYCLINE HYCLATE 100 MG CAP PO SCH (22:31)
[2019-04-09] MEDS: VANCOMYCIN HCL 1,000 MG in SODIUM CHLORIDE 0.9% 250 ML IV SCH ×2 (02:16→13:59)
[2019-04-09] MEDS: CEFEPIME 2,000 MG in SYRINGE 7.5 ML IV SCH ×3 (05:42→20:11)
[2019-04-09 06:02] LABS: Hematocrit (blood only) 34.6 % (37-47); Mean Corpuscular Hemoglobin 29.6 pg (25-34); Mean Corpuscular Hgb Conc 31.8 g/dL (32-36); Mean Platelet Volume 9.3 fL (7.4-10.4); Platelet Count 293 K/uL (130-400); RDW Coefficient of Variation 14.3 % (11.5-14.5); RDW Standard Deviation 48.6 fL (36.4-46.3); Red Blood Count 3.72 M/uL (4.2-5.4); White Blood Count 13.24 K/uL (4.8-10.8)
[2019-04-09 06:31] LABS: BUN Creatinine Ratio 32.9 (10-20); Calcium 8.8 mg/dl (8.5-10.1); Creatinine Clr Calc Pharmacy 93.8 ml/min; Est GFR (African American) 106.8; Est GFR (Non-African American) 92.2
[2019-04-09] MEDS: DOXYCYCLINE HYCLATE 100 MG CAP PO SCH ×2 (08:55→20:04)
[2019-04-09] MEDS: LACTOBACILLUS ACIDOPHILUS (FLORANEX) TAB PO SCH ×4 (08:55→20:03)
[2019-04-09] MEDS: LOSARTAN POTASSIUM 50 MG TAB PO SCH (08:56)
[2019-04-09] MEDS: hydroCHLOROthiazide 25 MG TAB PO SCH (08:56)
[2019-04-09] MEDS: HEPARIN SOD 5,000 UNIT/0.5 ML VIAL SQ SCH ×2 (08:57→20:03)
[2019-04-09] MEDS ORDERED: MAGNESIUM SULFATE / D5W 1 GM/100 ML BAG IV ONE (17:32)
[2019-04-09] MEDS: METOPROLOL TARTRATE 25 MG TAB PO SCH (17:59)
--- NOTE | 2019-04-09 19:06 | Hospitalist Progress Note ---
Date of Service April 09, 2019 Assessment & Plan (1) Sepsis: Presents on admission with pleuritic chest pain and shortness of breath Tachycardia, elevated WBC 21K CXR with mild bibasilar interstitial infiltrative change. Received IV cefepime, vancomycin and doxycycline in ED Urine cx and blood cx no growth Continue IV doxy, Vanco and cefepime WBC 13K today (2) Pneumonia: CXR with mild bibasilar interstitial infiltrative change. Chronic hilar fullness CTA chest showed no evidence of acute pulmonary embolism. Progressive interlobular septal thickening suggesting worsening interstitial pulmonary edema Continue vanco and cefepime Follow up Blood cx growth (3) UTI (urinary tract infection): UTI with positive urine cultures growing enterococcus on 03/15 and 03/31 Completed a course of abx and just started a second course of abx on day 1 Pt said that she is having increase urinary frequency Urine cx no growth Continue abx (4) Edema of right lower extremity: Doppler of LE showed no DVT Improves (5) Hypertension: BP stable Continue home hctz, losartan (6) Headache: Headache resolved (7) Thyroid nodule: CT showed Stable 26 mm left lobe thyroid nodule Stable (8) Light chain disease, lambda type: Being followed by PCP with upcoming blood work ordered (9) Vitamin D deficiency: Continue supplementation DVT Ppx: SQ heparin Code status: FULL Subjective Pt was seen and examined Lying in bed with no distress Pt said that her breathing improves She said that she continues to cough but unable to bring any phlegm Denies any chest pain, palpitation, dizziness and SOB Physical Exam Physical Exam: General- No acute distress Head- atraumatic Eyes- PERRL, EOMI, ENT- oropharynx clear Neck- supple, no JVD Lungs- Diminished BS Heart- regular rhythm; no murmur Abdomen- normal bowel sounds, soft, nontender Extremities- no calf tenderness Neuro- alert, oriented x 3; PERRL, EOMI; no facial palsy; no dysarthria Skin- warm & dry Results & Data Vital Signs (Past 12 Hours) Vital Signs Temp Pulse Pulse Resp BP Pulse Ox 04/09/19 15:55 37.1 C 105 H 32 H 130/74 92 04/09/19 15:02 105 H 04/09/19 12:00 37.1 C 107 H 20 118/62 93 04/09/19 10:12 107 H 04/09/19 07:55 36.8 C 114 H 16 130/58 L 91
[2019-04-09] MEDS: ACETAMINOPHEN 325 MG TAB PO PRN (20:04)
[2019-04-09] MEDS: guaiFENesin SUGAR FREE 200 MG/10 ML UDC PO PRN (20:05)
[2019-04-10] MEDS: VANCOMYCIN HCL 1,000 MG in SODIUM CHLORIDE 0.9% 250 ML IV SCH (02:16)
[2019-04-10] MEDS: CEFEPIME 2,000 MG in SYRINGE 7.5 ML IV SCH ×2 (05:36→13:42)
[2019-04-10 05:56] LABS: Hemoglobin 10.9 g/dL (12.0-16.0); Mean Corpuscular Hemoglobin 29.1 pg (25-34); Mean Corpuscular Hgb Conc 31.1 g/dL (32-36); Mean Corpuscular Volume 93.3 fL (80-100); Mean Platelet Volume 9.1 fL (7.4-10.4); Platelet Count 292 K/uL (130-400); RDW Coefficient of Variation 14.3 % (11.5-14.5); RDW Standard Deviation 48.9 fL (36.4-46.3); Red Blood Count 3.75 M/uL (4.2-5.4)
[2019-04-10] MEDS: guaiFENesin SUGAR FREE 200 MG/10 ML UDC PO PRN ×2 (06:18→13:16)
[2019-04-10 06:29] LABS: BUN Creatinine Ratio 32.2 (10-20); Calcium 8.6 mg/dl (8.5-10.1); Creatinine Clr Calc Pharmacy 115.8 ml/min; Est GFR (African American) 114.5; Est GFR (Non-African American) 98.8; Potassium 3.9 mmol/L (3.5-5.1)
[2019-04-10] MEDS: LACTOBACILLUS ACIDOPHILUS (FLORANEX) TAB PO SCH ×3 (08:51→16:13)
[2019-04-10] MEDS: LOSARTAN POTASSIUM 50 MG TAB PO SCH (08:52)
[2019-04-10] MEDS: METOPROLOL TARTRATE 25 MG TAB PO SCH (08:52)
[2019-04-10] MEDS: hydroCHLOROthiazide 25 MG TAB PO SCH (08:52)
[2019-04-10] MEDS: DOXYCYCLINE HYCLATE 100 MG CAP PO SCH (08:53)
[2019-04-10] MEDS: HEPARIN SOD 5,000 UNIT/0.5 ML VIAL SQ SCH (08:55)
[2019-04-10 11:43] VITALS: BP 133/64; TEMP 98.4; O2SAT 94
[2019-04-10] MEDS ORDERED: VANCOMYCIN TROUGH ONE (13:30)
--- NOTE | 2019-04-10 15:49 | Hospitalist Progress Note ---
Date of Service April 10, 2019 Assessment & Plan (1) Sepsis: Presents on admission with pleuritic chest pain and shortness of breath Tachycardia, elevated WBC 21K on admission CXR with mild bibasilar interstitial infiltrative change. Received IV cefepime, vancomycin and doxycycline in ED Urine cx grew multiple organisms and blood cx no growth WBC and lactate normalize D/C IV vanco On IV doxy and cefepime Will transition to oral cefdinir on discharge (2) Pneumonia: CXR with mild bibasilar interstitial infiltrative change. Chronic hilar fullness CTA chest showed no evidence of acute pulmonary embolism. Progressive interlobular septal thickening suggesting worsening interstitial pulmonary edema D/C IV Vanco On IV cefepime and Doxy Follow up Blood cx growth (3) UTI (urinary tract infection): UTI with positive urine cultures growing enterococcus on 03/15 and 03/31 Completed a course of abx and just started a second course of abx on day 1 Pt said that she is having increase urinary frequency Urine cx growth multiple organisms (Contamination) Continue abx cefdinir that will cover pulmonary and urinary source (4) Edema of right lower extremity: Doppler of LE showed no DVT Stable (5) Hypertension: BP stable Continue home hctz, losartan (6) Sinus tachycardia: ECHO showed no wall motion abnormality. Moderate concentric LVH. 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 Richter on on 04/15 @ 11:20 AM Subjective Pt was seen and examined. Lying in bed with no distress Pt said that she is coughing less and the cough medication helps She said that she feels much better Denies any chest pain, palpitation, dizziness and SOB Physical Exam Physical Exam: General- No acute distress Head- atraumatic Eyes- PERRL, EOMI, ENT- oropharynx clear Neck- supple, no JVD Lungs- faint wheezing Heart- regular rhythm; no murmur Abdomen- normal bowel sounds, soft, nontender Extremities- no calf tenderness Neuro- alert, oriented x 3; PERRL, EOMI; no facial palsy; no dysarthria Skin- warm & dry Results & Data Vital Signs (Past 12 Hours) Vital Signs Temp Pulse Pulse Resp BP Pulse Ox 04/10/19 14:54 91 H 04/10/19 11:41 36.9 C 95 H 18 133/64 94 04/10/19 08:00 98 H 04/10/19 07:48 36.6 C 103 H 18 145/78 H 93 04/10/19 03:48 36.6 C 90 18 127/72 97
[2019-04-10] MEDS ORDERED: predniSONE 20 MG TAB PO ONE (16:00)
[2019-04-10] MEDS ORDERED: CEFDINIR 300 MG CAP PO SCH (16:15)
[2019-04-10 16:36] VITALS: PULSE 95
--- NOTE | 2019-04-11 08:46 | Discharge Summary ---
Date of Service April 10, 2019 Admission HPI Per Admitting Provider This is a 88yo F with a PMH of hypertension, vitamin D deficiency, light chain disease, recent right knee replacement and other medical problems listed below who presents with pleuritic chest pain or shortness of breath since yesterday. Patient has had intermittent malaise and body aches for the past 2 weeks along with dysuria and urinary frequency. Is receiving second course of Macrobid for enterococcus UT (most recent urine culture from 03/31 grew enterococcus sensitive to Macrobid) is still having urinary symptoms. Yesterday, patient also began to experience chills, pleuritic chest pain, shortness of breath and productive cough with yellow sputum. Since arrival in ED, also complaining of headache but denies photophobia. Denies fever, lightheadedness, visual changes, chest pain, palpitations, wheezing or hemoptysis. Appetite has been poor compared to normal. Also endorsing constipation but had small BM with straining this morning. In ED, patient found to tachycardic at 124 and is saturating at 96% on 2 L nasal cannula. Does not require home O2. Leukocytosis of 21.35k and lactic acid elevation at 2.4. Flu PCR, Anaplasma DNA and Lyme antibody pending. BNP and troponin normal. CXR with mild bibasilar interstitial infiltrative change. Chronic hilar fullness. Started on cefepime, vancomycin and doxycycline in ED and is receiving second liter of normal saline. Of note, patient recently underwent right knee replacement at [facility] in late January and was placed on Coumadin for DVT prophylaxis at that time. Admission Exam Per Admitting Provider General Appearance: WD/WN, vitals as above, NAD, sitting up in bed, pleasant, conversing easily Head: normocephalic, atraumatic Eyes: normal inspection, PERRL, conjunctivae normal, anicteric sclerae ENT: external ear and nose normal, oropharynx normal Neck: trachea midline, no thyromegaly normal visual inspection Respiratory: normal respiratory effort, bibasilar crackles, no wheeze or rhonchi. Normal insp/exp effort, no accessory muscle use Cardiovascular: tachycardic, regular rhythm, no murmur, normal peripheral pulses, BLE edema R>L . Vessels: no JVD or carotid bruit Chest: normal inspection of chest Abdomen/GI: normal bowel sounds, soft, nontender, no hepatosplenomegaly Extremities/Musculoskelatal: no cyanosis or clubbing, extremities motor strength 5/5 Neurologic: PERRL, EOMI, accommodation nl, no face palsy, no dysarthria CN's II-XI intact bilaterally and moves all extremities Psychiatric: A+Ox3, euthymic affect Skin: no rashes, normal color, warm/dry Principal Diagnosis (1) Sepsis: (2) Pneumonia: (3) UTI (urinary tract infection): (4) Edema of right lower extremity: (5) Hypertension: (6) Sinus tachycardia: (7) Headache: (8) Thyroid nodule: (9) Light chain disease, lambda type: Discharge Exam General- No acute distress Head- atraumatic Eyes- PERRL, EOMI, ENT- oropharynx clear Neck- supple, no JVD Lungs- faint wheezing Heart- regular rhythm; no murmur Abdomen- normal bowel sounds, soft, nontender Extremities- no calf tenderness Neuro- alert, oriented x 3; PERRL, EOMI; no facial palsy; no dysarthria Skin- warm & dry Discharge Data Allergies Allergy/AdvReac Type Severity Reaction Status Date / Time Penicillins Allergy Unknown Rash Verified 04/08/19 13:00 Sulfa (Sulfonamide Allergy Unknown Rash Verified 04/08/19 13:00 Antibiotics) shellfish derived AdvReac Intermediate Diarrhea Verified 04/08/19 13:00 Consultations 04/08/19 13:22 ED Decision to Admit Stat 04/08/19 15:43 Consult Case Management - Discharge Planning Routine Ordered Studies 04/08/19 14:45 CT angio chest PE protocol Stat 04/08/19 16:00 US venous doppler LE RT Urgent US venous doppler LE RT CLINICAL HISTORY: 88 years-old Female presenting with R>L edema status post right knee replacement. TECHNIQUE: Real-time grayscale and color and spectral Doppler ultrasound imaging of the veins of the right lower extremity was performed. Compression and augmentation were also utilized. COMPARISON: 03/22/2019. FINDINGS: RIGHT: Common femoral vein: Patent. Greater saphenous vein (superficial): Patent. Deep femoral vein: Patent. Femoral vein: Patent. Popliteal vein: Patent. Calf veins: Patent. Other: None. IMPRESSION: No evidence of deep venous thrombosis. Electronically signed by: Matthew Saez M.D. 04/08/2019 5:54 PM Dictated: 04/08/19 1753 Transcribed: 04/08/[address] ANGIOGRAM OF THE CHEST CLINICAL HISTORY: Atypical chest pain possible pulmonary embolism SHORTNESS OF BREATH COMPARISON STUDY: 03/22/2019 TECHNIQUE: Following the IV administration of 116 mL of [id number]-[id number], CT angiogram of the thorax was performed from the thoracic inlet to the lung bases utilizing the pulmonary embolus protocol. Images are reviewed in the axial, sagittal, and coronal planes. IV contrast was administered without complication. MIP imaging was performed. A dose lowering technique was utilized adhering to the principles of ALARA. CT DOSE: 363.38 mGy.cm FINDINGS: There is stable 26 mm left lobe thyroid nodule. There are borderline enlarged mediastinal and hilar lymph nodes, similar to the preceding study. There was no evidence of thoracic aortic dilatation. Evaluation for pulmonary emboli is limited due to significant respiratory motion artifact. There are no pulmonary artery filling defects to indicate acute pulmonary emboli. There are small bilateral pleural effusions There are dependent atelectatic changes. There is interlobular septal thickening indicative of interstitial pulmonary edema. IMPRESSION: 1. No evidence of acute pulmonary embolism, given the technical limitations of the study which is compromised due to respiratory motion artifact 2. Progressive interlobular septal thickening suggesting worsening interstitial pulmonary edema 3. Small bilateral pleural effusions 4. Dependent atelectasis 5. Stable 26 mm left lobe thyroid nodule Electronically signed by: Esteban Valerio M.D. 04/08/2019 3:34 PM Dictated: 04/08/19 1530 Transcribed: 04/08/19 1530 XR chest 1V portable CLINICAL HISTORY: Chest Pain dyspnea COMPARISON STUDY: 03/22/2019 FINDINGS: Interstitial infiltrate left and to a lesser extent right base. Mid and upper lungs are clear. Chronic hilar fullness bilaterally. There are no consolidative infiltrates. IMPRESSION: Mild bibasilar interstitial infiltrative change. Chronic hilar fullness. The above report was generated using voice recognition software. It may contain grammatical, syntax or spelling errors. Electronically signed by: Jakob Cervantes M.D. 04/08/2019 12:43 PM Dictated: 04/08/19 1242 Transcribed: 04/08/19 1242 Hospital Course (1) Sepsis: Presents on admission with pleuritic chest pain and shortness of breath Tachycardia, elevated WBC 21K on admission CXR with mild bibasilar interstitial infiltrative change. Received IV cefepime, vancomycin and doxycycline in ED Urine cx grew multiple organisms and blood cx no growth WBC and lactate normalize D/C IV vanco On IV doxy and cefepime Will transition to oral cefdinir on discharge (2) Pneumonia: CXR with mild bibasilar interstitial infiltrative change. Chronic hilar fullness CTA chest showed no evidence of acute pulmonary embolism. Progressive interlobular septal thickening suggesting worsening interstitial pulmonary edema D/C IV Vanco On IV cefepime and Doxy Follow up Blood cx growth (3) UTI (urinary tract infection): UTI with positive urine cultures growing enterococcus on 03/15 and 03/31 Completed a course of abx and just started a second course of abx on day 1 Pt said that she is having increase urinary frequency Urine cx growth multiple organisms (Contamination) Continue abx cefdinir that will cover pulmonary and urinary source (4) Edema of right lower extremity: Doppler of LE showed no DVT Stable (5) Hypertension: BP stable Continue home hctz, losartan (6) Sinus tachycardia: ECHO showed no wall motion abnormality. Moderate concentric LVH. 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 Richter on on 04/15 @ 11:20 AM Total Time Total Time Spent Total Time Spent (In Minutes): 35 minutes Total Time Includes: Examination of the Patient, Discharge Planning, Medication Reconciliation, Communication With Other Providers and Other Discharge Plan Discharge Items Patient Disposition: Home - Home Health Services Reason For Visit: SEPSIS 2/2 PNA UTI Discharge Diagnosis: (1) Sepsis: (2) Pneumonia: (3) UTI (urinary tract infection): (4) Edema of right lower extremity: (5) Hypertension: (6) Sinus tachycardia: (7) Headache: (8) Thyroid nodule: (9) Light chain disease, lambda type: Activity: Resume your previous activity Activity Comment: as tolerated Non-emergency contact: Primary Care Provider Call non-emergency contact if: you have any medication questions and your temperature is above 101 Follow-up/Referrals: Ez Richter MD [Primary Care Provider] - Diet: Heart Healthy Addtl Attending Provider Instructions: Follow up with your primary care provider Dr. Richter on 04/15 @ 11:20 AM Follow up with orthopedic (already schedule for follow up appointment tomorrow) Continue physical and occupational therapy Fall precaution Complete course of antibiotic Pending Studies at Discharge: No Stand-Alone Forms: [facility] [place], Smoking Cessation Medications and DC Order Prescriptions: New cefdinir 300 mg Capsule 300 mg PO Q12H 4 Days Qty: 8 RF: 0 metoprolol tartrate 25 mg Tablet 12.5 mg PO BID 30 Days Qty: 30 RF: 0 guaifenesin 200 mg tablet 200 mg PO TID PRN (Reason: cough) Qty: 15 RF: 0 Continued losartan 50 mg Tablet 50 mg PO QAM RF: 0 cyanocobalamin (vitamin B-12) [Vitamin B-12] 1,000 mcg Tablet 2,000 mcg PO QAM RF: 0 hydrochlorothiazide 12.5 mg Capsule 12.5 mg PO QAM RF: 0 multivitamin Capsule 1 cap PO QAM RF: 0 acetaminophen [Tylenol Extra Strength] 500 mg Tablet 1,000 mg PO BID RF: 0 Discontinued nitrofurantoin monohyd/m-cryst 100 mg capsule 100 mg PO BID RF: 0 Discharge Orders: Discharge Order (Routine); Ordered 04/10/19 Ordered By: Patricia Perea Admission Data Admit Date/Time: 04/08/19 14:35 Attending Provider: Patricia Perea Admit Provider: Wallace Fowler Primary Care Provider: Ez Richter Other Providers: Wallace Fowler ; [facility] Other Interventions: Discharge Summary Assessment (RN) Last Done: 04/10/19 16:33 DC Date/Time DO NOT enter until pt leaves facility: 04/10/19 17:05
== END 2019-04-10 17:05 | disposition home health service (06) | DRG 871 ==
LOC: ED 11:40 → SUATTDRO 14:35 → 2E 14:35